=== PATIENT | male | born 1960 | race Caucasian/White ===

== ENCOUNTER 2017-03-31 01:28 | Emergency (ER) | payer BC, MEDICARE ==
[2017-03-31] MEDS ORDERED: ASPIRIN 81 MG CHEWABLE CTB PO STA (01:36)
[2017-03-31] MEDS ORDERED: SODIUM CHLORIDE 0.9% FLUSH 10 ML SOL IV PRN (01:36)
[2017-03-31] MEDS ORDERED: NITROGLYCERIN 0.4 MG TAB SL ONE (01:37)
[2017-03-31] MEDS: NITROGLYCERIN 0.4 MG TAB SL PRN ×2 (01:38→01:43)
[2017-03-31 01:42] LABS: BASOPHILS % (AUTO) 2 % (0-3); EOSINOPHILS % (AUTO) 4 % (0-9); HEMATOCRIT 43 % (39-53); MEAN CORPUSCULAR HGB CONC 33.7 gm/dl (32.0-36.0); MEAN CORPUSCULAR VOLUME 91 fL (80-100); MONOCYTES % (AUTO) 10.2 % (0-12)
[2017-03-31 01:43] VITALS: TEMP 98.3
[2017-03-31 01:55] LABS: GLOM FILT RATE 62 mL/min (>60); POTASSIUM 3.7 mMol/L (3.5-5.1); SODIUM 142 mMol/L (136-145)
[2017-03-31 02:12] VITALS: BP 128/77; PULSE 64; RESP 18; O2SAT 98
== END 2017-03-31 02:20 | disposition home or self-care (01) ==
LOC: ED 01:28
DX: R07.89 Other chest pain (principal)
CPT/HCPCS: 36415; 71010; 80048; 82550; 84484; 85025; 93005; 99284; 99285

== ENCOUNTER 2018-12-08 17:05 | Emergency (ER) | payer BC, MEDICARE ==
[2018-12-08] MEDS: SODIUM CHLORIDE 0.9% FLUSH 10 ML SOL IV PRN ×2 (17:06→19:05)
[2018-12-08 17:13] VITALS: TEMP 97.9
[2018-12-08 17:25] LABS: BASOPHILS % (AUTO) 1 % (0-3); EOSINOPHILS % (AUTO) 3 % (0-9); HEMATOCRIT 44 % (39-53); HEMOGLOBIN 14.4 gm/dl (13.5-17.7); LYMPHOCYTES % (AUTO) 27.5 % (10-50); MEAN CORPUSCULAR HEMOGLOBIN 29.4 pg (27.0-32.0); MEAN CORPUSCULAR HGB CONC 32.3 gm/dl (32.0-36.0); MEAN CORPUSCULAR VOLUME 91 fL (80-100); MONOCYTES % (AUTO) 10.4 % (0-12); NEUTROPHILS % (AUTO) 58.2 % (37-80)
[2018-12-08 17:38] LABS: BLOOD UREA NITROGEN 12 mg/dl (7-18); CALCIUM 8.9 mg/dl (8.5-10.1); CARBON DIOXIDE 26.1 mEq/L (21-32); CHLORIDE 105 mMol/L (98-107); CREATININE 0.99 mg/dl (0.80-1.30); GLUCOSE 105 mg/dl (74-106); POTASSIUM 3.7 mMol/L (3.5-5.1); SODIUM 143 mMol/L (136-145); TROP I < 0.017 ng/ml (0.000-0.056)
[2018-12-08] MEDS ORDERED: LORAZEPAM 2 MG/ML SOL IV ONE (18:45)
[2018-12-08] MEDS ORDERED: LORAZEPAM 2 MG/ML SOL ONE (19:00)
[2018-12-08 19:29] VITALS: RESP 18
[2018-12-08 20:38] VITALS: BP 167/103; PULSE 64; O2SAT 98
== END 2018-12-08 20:29 | disposition home or self-care (01) ==
LOC: ED 17:05
DX: F41.9 Anxiety disorder, unspecified (principal); I10 Essential (primary) hypertension; R06.02 Shortness of breath
CPT/HCPCS: 71045; 80048; 83880; 84443; 84484; 85025; 93005; 96374; 99283; 99285; J2060

== ENCOUNTER 2019-01-31 23:15 | Emergency (ER) | payer BC, MEDICARE ==
[2019-01-31 23:15] VITALS: O2SAT 98
[2019-01-31 23:44] VITALS: BP 165/89; PULSE 62; RESP 20; TEMP 97.4
== END 2019-02-01 00:05 | disposition home or self-care (01) ==
LOC: ED 23:15
DX: S61.211A Laceration without foreign body of left index finger without damage to nail, initial encounter (principal); W26.0XXA Contact with knife, initial encounter
CPT/HCPCS: 99282; 99283